=== PATIENT | male | born 2000 | race Caucasian/White ===

== ENCOUNTER 2023-05-05 18:06 | Emergency (ER) | payer SELFPAY ==
[~2023-05-05] VITALS: Ht 172.7 cm; Wt 80.0 kg
[2023-05-05 18:09] VITALS: BP 141/90; PULSE 90; RESP 18; TEMP 98.7; O2SAT 100
[2023-05-05] MEDS: ACETAMINOPHEN 325MG TABLET PO ONE (18:45)
[2023-05-05] MEDS ORDERED: TOPUD PO (19:06)
== END 2023-05-05 23:05 | disposition home or self-care (01) ==
LOC: ER 18:06
DX: S01.81XA Laceration without foreign body of other part of head, initial encounter (principal); M25.562 Pain in left knee; V49.49XA Driver injured in collision with other motor vehicles in traffic accident, initial encounter; Y93.89 Activity, other specified; Y92.89 Other specified places as the place of occurrence of the external cause; Y99.8 Other external cause status
CPT/HCPCS: 73560; 70450; 12001; 99284; Z7610